=== PATIENT | male | born 1980 | race African-American/Black ===

== ENCOUNTER 2018-04-06 16:34 | Emergency (ER) | payer OTHER ==
[~2018-04-06] VITALS: Ht 175.3 cm; Wt 88.5 kg
[~2018-04-06 16:34] MED LIST: ACET325T9 PO
[2018-04-06] MEDS ORDERED: IV NORMAL SALINE 1000ML BAG 1,000 ML IV ONE (18:30)
[2018-04-06] MEDS ORDERED: KETOROLAC 30 MG/ML VIAL. IV ONE (18:30)
[2018-04-06] MEDS ORDERED: KETOROLAC 60 MG/2 ML VIAL. IM ONE (18:30)
[2018-04-06] MEDS ORDERED: HYDROcodone/APAP 5/325MG 1 TAB TABLET PO ONE (18:30)
[2018-04-06 18:51] LABS: BILIRUBIN,URINE NEGATIVE (NEG); COLOR,URINE YELLOW; NITRITE,URINE NEGATIVE (NEG); PROTEIN,URINE NEGATIVE (NEG-TRACE); UROBILINOGEN,URINE 0.2 mg/dL (0.2 mg/dL)
[2018-04-06 18:56] LABS: CLARITY,URINE CLEAR
[2018-04-06 18:59] LABS: BACTERIA,URINE FEW /HPF (0-FEW); RBC,URINE 0 /HPF (0-2); SQUAMOUS EPITHELIAL CELL,UR MOD /LPF
--- NOTE | 2018-04-06 19:13 | PHYS DOC ---
Past Medical History Past Medical History: No Pertinent History (CHRISTIE ELLIS APRN) Past Surgical History: No Surgical History (CHRISTIE ELLIS APRN) Alcohol Use: None Drug Use: None (CHRISTIE ELLIS APRN) Adult General Chief Complaint Chief Complaint: BACK PAIN OR INJURY HPI HPI Patient is a 38 year old male who presents with lower abdominal pain, dysuria, fever, back pain 1 day. Patient rates his pain an 8 out of 10. Denies nausea or vomiting or blood in his urine. Temp is 100.5, 104 heart rate. (CHRISTIE ELLIS CEO AND FOUNDER) Review of Systems Review of Systems Constitutional: fever or chills [] Eyes: Denies change in visual acuity, redness, or eye pain [] HENT: Denies nasal congestion or sore throat [] Respiratory: Denies cough or shortness of breath [] Cardiovascular: No additional information not addressed in HPI [] GI: abdominal pain, denies nausea, vomiting, bloody stools or diarrhea [] : dysuria or denies hematuria [] Musculoskeletal: Bilateral back pain or denies joint pain [] Integument: Denies rash or skin lesions [] Neurologic: Denies headache, focal weakness or sensory changes [] All other systems were reviewed and found to be within normal limits, except as documented in this note. (CHRISTIE ELLIS APRN) Current Medications Current Medications Current Medications Medications (Trade) Dose Ordered Sig/Victoriano Start Time Stop Time Status Last Admin Dose Admin Acetaminophen/ Hydrocodone Bitart (Lortab 5/325) 1 tab 1X ONCE 04/06/18 18:30 04/06/18 18:31 DC 04/06/18 20:15 1 TAB Ketorolac Tromethamine (Toradol 30mg Vial) 30 mg 1X ONCE 04/06/18 18:30 04/06/18 18:34 DC 04/06/18 19:26 30 MG Ketorolac Tromethamine (Toradol Im) 60 mg 1X ONCE 04/06/18 18:30 04/06/18 18:31 DC Sodium Chloride 1,000 ml @ 1,000 mls/hr 1X ONCE 04/06/18 18:30 04/06/18 19:29 DC 04/06/18 19:25 1,000 MLS/HR (ALMAS LYNN DO) Allergies Allergies Allergies Coded Allergies Type Severity Reaction Last Updated Verified No Known Drug Allergies 03/23/13 No (ALMAS LYNN DO) Physical Exam Physical Exam Constitutional: Well developed, well nourished, no acute distress, non-toxic appearance. [] HENT: Normocephalic, atraumatic, bilateral external ears normal, oropharynx moist, no oral exudates, nose normal. [] Eyes: PERRLA, EOMI, conjunctiva normal, no discharge. [] Neck: Normal range of motion, no tenderness, supple, no stridor. [] Cardiovascular:Heart rate regular rhythm, no murmur [] Lungs & Thorax: Bilateral breath sounds clear to auscultation [] Abdomen: Bowel sounds normal, soft, left lower quadrant, right lower quadrant, mid lower abdominal tenderness, no masses, no pulsatile masses. [] Skin: Warm, dry, no erythema, no rash. [] Back: No tenderness, CVA tenderness. [] Extremities: No tenderness, no cyanosis, no clubbing, ROM intact, no edema. [] Neurologic: Alert and oriented X 3, normal motor function, normal sensory function, no focal deficits noted. [] Psychologic: Affect normal, judgement normal, mood normal. [] (CHRISTIE ELLIS APRN) Current Patient Data Vital Signs Vital Signs Date Time Temp Pulse Resp B/P (MAP) Pulse Ox O2 Delivery O2 Flow Rate FiO2 04/06/18 20:38 81 112/67 (82) 95 04/06/18 20:15 18 Room Air 04/06/18 18:39 100.5 100.5 (ALMAS LYNN DO) Lab Values Laboratory Tests Test 04/06/18 18:34 04/06/18 19:18 Urine Collection Type Unknown Urine Color Yellow Urine Clarity Clear Urine pH 6.0 Urine Specific [place] 1.010 Urine Protein Negative mg/dL (NEG-TRACE) Urine Glucose (UA) Negative mg/dL (NEG) Urine Ketones (Stick) Negative mg/dL (NEG) Urine Blood Negative (NEG) Urine Nitrite Negative (NEG) Urine Bilirubin Negative (NEG) Urine Urobilinogen Dipstick 0.2 mg/dL (0.2 mg/dL) Urine Leukocyte Esterase Trace (NEG) Urine RBC 0 /HPF (0-2) Urine WBC 1-4 /HPF (0-4) Urine Squamous Epithelial Cells Mod /LPF Urine Bacteria Few /HPF (0-FEW) White Blood Count 8.0 x10^3/uL (4.0-11.0) Red Blood Count 5.93 x10^6/uL (4.30-5.70) H Hemoglobin 17.3 g/dL (13.0-17.5) Hematocrit 51.0 % (39.0-53.0) Mean Corpuscular Volume 86 fL (79-100) Mean Corpuscular Hemoglobin 29 pg (25-35) Mean Corpuscular Hemoglobin Concent 34 g/dL (31-37) Red Cell Distribution Width 12.9 % (11.5-14.5) Platelet Count 194 x10^3/uL (140-400) Neutrophils (%) (Auto) 82 % (31-73) H Lymphocytes (%) (Auto) 10 % (24-48) L Monocytes (%) (Auto) 7 % (0-9) Eosinophils (%) (Auto) 1 % (0-3) Basophils (%) (Auto) 0 % (0-3) Neutrophils # (Auto) 6.6 x10^3uL (1.8-7.7) Lymphocytes # (Auto) 0.8 x10^3/uL (1.0-4.8) L Monocytes # (Auto) 0.5 x10^3/uL (0.0-1.1) Eosinophils # (Auto) 0.1 x10^3/uL (0.0-0.7) Basophils # (Auto) 0.0 x10^3/uL (0.0-0.2) Sodium Level 137 mmol/L (136-145) Potassium Level 4.3 mmol/L (3.5-5.1) Chloride Level 99 mmol/L (98-107) Carbon Dioxide Level 29 mmol/L (21-32) Anion Gap 9 (6-14) Blood Urea Nitrogen 15 mg/dL (8-26) Creatinine 0.9 mg/dL (0.7-1.3) Estimated GFR (Cockcroft-Gault) 115.5 BUN/Creatinine Ratio 17 (6-20) Glucose Level 89 mg/dL (70-99) Calcium Level 9.6 mg/dL (8.5-10.1) Total Bilirubin 0.9 mg/dL (0.2-1.0) Aspartate Amino Transferase (AST) 35 U/L (15-37) Alanine Aminotransferase (ALT) 45 U/L (16-63) Alkaline Phosphatase 87 U/L (46-116) Total Protein 8.2 g/dL (6.4-8.2) Albumin 4.5 g/dL (3.4-5.0) Albumin/Globulin Ratio 1.2 (1.0-1.7) Laboratory Tests 04/06/18 19:18 Laboratory Tests 04/06/18 19:18 (ALMAS LYNN DO) EKG EKG [] (CHRISTIE ELLIS APRN) Radiology/Procedures Radiology/Procedures CT abdomen pelvis (CHRISTIE ELLIS APRN) Impressions: [facility] [address] [place] [address] IMAGING REPORT Signed PATIENT: CHAMP SUN ACCOUNT: [id number] : 1980 LOCATION: ER AGE: 38 SEX: M EXAM STATUS: REG ER ORD. PHYSICIAN: CHRISTIE ELLIS APRN REASON: FLANK PAIN, ABDOMINAL PAIN, URINARY SX PROCEDURE: CT ABDOMEN PELVIS WO CONTRAST CT study of the abdomen and pelvis without contrast Clinical indications: Bilateral flank pain. Abdominal pain. Urinary symptoms. TECHNIQUE: Noncontrast helical CT scanning of the abdomen and pelvis was performed. Without contrast, the sensitivity to detect organ pathology and GI tract pathology is decreased. PQRS compliance Statement One or more of the following individualized dose reduction techniques were utilized for this study: 1. Automated exposure control 2. Adjustment of the mA and/or kV according to patient size 3. Use of iterative reconstruction technique COMPARISON: None available FINDINGS: The liver and spleen and pancreas are normal on this noncontrast study. Gallbladder is normal and no extrahepatic biliary ductal dilatation is seen. No adrenal mass is evident. No hydronephrosis or hydroureter is evident. No urinary tract stone is evident. No renal mass seen on this noncontrast study. No focal aneurysmal dilatation of the abdominal aorta is seen. No enlarged abdominal or pelvic lymphadenopathy is evident. Urinary bladder is not distended. The appendix is normal. The terminal ileum is unremarkable. There is mild fecal retention throughout the colon. No obstructive bowel pattern is seen. No free air or free fluid or mesenteric edema is seen. No lytic process is seen. There is a cyst or hemangioma of the T12 vertebral body. Well-defined sclerotic border is seen. There is a small noncalcified lung nodule within the inferior segment of lingula measuring less than 4 mm. There is a small infiltrate present within the medial segment of the right middle lobe. IMPRESSION: Colonic diverticulosis without diverticulitis. No acute abnormality of the abdomen or pelvis is seen otherwise. Small infiltrate is seen within the medial segment of the right middle lobe. There is a noncalcified nodule measuring less than 4 mm in size within the inferior segment lingula. If the patient is at high risk for malignancy, then a follow-up chest CT in 12 months is recommended as per Fleischner guidelines. If not at high risk for malignancy, then no further follow-up is needed. Electronically signed by: Wilda Lemos MD (04/06/2018 8:10 PM) [facility] DICTATED and SIGNED BY: WILDA LEMOS MD DATE: 04/06/182000 (CHRISTIE ELLIS APRN) Course & Med Decision Making Course & Med Decision Making Patient is a 38 year old male who presents with lower abdominal pain, dysuria, fever, back pain 1 day. Patient rates his pain an 8 out of 10. Denies nausea or vomiting or blood in his urine. Temp is 100.5, 104 heart rate. Alert and oriented. Skin pink warm and dry. Mucous membranes are moist. CVA tenderness. Left lower, right lower, mid lower abdomen tenderness with palpation. Abdomen is soft. Patient denies nausea, vomiting, diarrhea. Patient states he has been running a fever. Patient denies taking any medications. Patient has no extremity edema. Heart rate and tachycardia but no murmur. CT shows no acute findings.Colonic diverticulosis without diverticulitis. No acute abnormality of the abdomen or pelvis is seen otherwise. Small infiltrate is seen within the medial segment of the right middle lobe. There is a noncalcified nodule measuring less than 4 mm in size within the inferior segment lingula. If the patient is at high risk for malignancy, then a follow- up chest CT in 12 months is recommended as per Fleischner guidelines. If not at high risk for malignancy, then no further follow-up is needed. Urine shows slight infection and will be treated because of his symptoms, his fever, and small infiltrate seen. (CHRISTIE ELLIS APRN) Dragon Disclaimer Dragon Disclaimer This electronic medical record was generated, in whole or in part, using a voice recognition dictation system. (CHRISTIE ELLIS APRN) Departure Departure Impression: Primary Impression: Urinary symptom or sign Additional Impression: Fever Disposition: HOME, SELF-CARE Condition: STABLE Referrals: NON,STAFF (PCP) Patient Instructions: Dysuria, Fever Additional Instructions: FOLLOW UP WITH YOUR PRIMARY CARE PROVIDER ON SUNDAY. TAKE MEDICATIONS PRESCRIBED. Scripts Cephalexin (KEFLEX) 500 Mg Capsule 1 CAP PO BID, #14 CAP Prov: CHRISTIE ELLIS APRN 04/06/18 Ibuprofen (IBUPROFEN) 600 Mg Tablet 600 MG PO PRN Q6HRS PRN for INFLAMMATION, #20 TAB Prov: CHRISTIE ELLIS APRN 04/06/18 Attending Signature Attending Signature I have reviewed the PA/[employer] CREWMEMBER's note and plan of care. I was available for consultation as needed during the patient's visit in the emergency department. I agree with the clinical impression, plan, and disposition. (ALMAS LYNN DO) Problem Qualifiers Additional Impression: Fever Fever type: unspecified Qualified Codes: R50.9 - Fever, unspecified CHRISTIE ELLIS APRN Apr 06, 2018 19:13 ALMAS LYNN DO Apr 07, 2018 00:59
[2018-04-06 19:49] LABS: BASO % 0 % (0-3); EOS # 0.1 x10^3/uL (0.0-0.7); EOS % 1 % (0-3); HEMOGLOBIN 17.3 g/dL (13.0-17.5); LYMPH # 0.8 x10^3/uL (1.0-4.8); LYMPH % 10 % (24-48); MEAN CORPUSCULAR HEMOGLOBIN 29 pg (25-35); MEAN CORPUSCULAR HGB CONC 34 g/dL (31-37); MEAN CORPUSCULAR VOLUME 86 fL (79-100); MONO # 0.5 x10^3/uL (0.0-1.1); MONO % 7 % (0-9); NEUT # 6.6 x10^3uL (1.8-7.7); NEUT % 82 % (31-73); PLATELET COUNT 194 x10^3/uL (140-400); RED BLOOD COUNT 5.93 x10^6/uL (4.30-5.70); RED CELL DISTRIBUTION WIDTH 12.9 % (11.5-14.5)
[2018-04-06 20:01] LABS: CALCIUM 9.6 mg/dL (8.5-10.1); CREATININE 0.9 mg/dL (0.7-1.3); GFR 115.5; POTASSIUM 4.3 mmol/L (3.5-5.1)
[2018-04-06 20:07] LABS: ALBUMIN 4.5 g/dL (3.4-5.0); ALBUMIN/GLOBULIN RATIO 1.2 (1.0-1.7); TOTAL BILIRUBIN 0.9 mg/dL (0.2-1.0); TOTAL PROTEIN 8.2 g/dL (6.4-8.2)
--- NOTE | 2018-04-06 20:15 | RAD ---
CT study of the abdomen and pelvis without contrast Clinical indications: Bilateral flank pain. Abdominal pain. Urinary symptoms. TECHNIQUE: Noncontrast helical CT scanning of the abdomen and pelvis was performed. Without contrast, the sensitivity to detect organ pathology and GI tract pathology is decreased. PQRS compliance Statement One or more of the following individualized dose reduction techniques were utilized for this study: 1. Automated exposure control 2. Adjustment of the mA and/or kV according to patient size 3. Use of iterative reconstruction technique COMPARISON: None available FINDINGS: The liver and spleen and pancreas are normal on this noncontrast study. Gallbladder is normal and no extrahepatic biliary ductal dilatation is seen. No adrenal mass is evident. No hydronephrosis or hydroureter is evident. No urinary tract stone is evident. No renal mass seen on this noncontrast study. No focal aneurysmal dilatation of the abdominal aorta is seen. No enlarged abdominal or pelvic lymphadenopathy is evident. Urinary bladder is not distended. The appendix is normal. The terminal ileum is unremarkable. There is mild fecal retention throughout the colon. No obstructive bowel pattern is seen. No free air or free fluid or mesenteric edema is seen. No lytic process is seen. There is a cyst or hemangioma of the T12 vertebral body. Well-defined sclerotic border is seen. There is a small noncalcified lung nodule within the inferior segment of lingula measuring less than 4 mm. There is a small infiltrate present within the medial segment of the right middle lobe. IMPRESSION: Colonic diverticulosis without diverticulitis. No acute abnormality of the abdomen or pelvis is seen otherwise. Small infiltrate is seen within the medial segment of the right middle lobe. There is a noncalcified nodule measuring less than 4 mm in size within the inferior segment lingula. If the patient is at high risk for malignancy, then a follow-up chest CT in 12 months is recommended as per Fleischner guidelines. If not at high risk for malignancy, then no further follow-up is needed. Electronically signed by: Shon Lemos MD (04/06/2018 8:10 PM) [facility]
[2018-04-06] MEDS ORDERED: IBUP-1007 PO (20:28)
[2018-04-06] MEDS ORDERED: CEPH-264 PO (20:28)
[2018-04-06 20:38] VITALS: BP 112/67
== END 2018-04-06 21:08 | disposition home or self-care (01) ==
LOC: ER 16:34
DX: R10.32 Left lower quadrant pain (principal); R10.31 Right lower quadrant pain; R30.0 Dysuria; R50.9 Fever, unspecified; M54.9 Dorsalgia, unspecified
CPT/HCPCS: 36415; 74176; 80053; 81001; 85025; 87086; 96374; 99284; J1885; J7030

== ENCOUNTER 2019-03-02 11:58 | Emergency (ER) | payer OTHER ==
[~2019-03-02] VITALS: Ht 175.3 cm; Wt 88.5 kg
[~2019-03-02 11:58] MED LIST changes: +CEPH-264 PO; +IBUP-1007 PO
[2019-03-02 13:03] LABS: BILIRUBIN,URINE NEGATIVE (NEG); CLARITY,URINE CLEAR; COLOR,URINE YELLOW; NITRITE,URINE NEGATIVE (NEG); PH,URINE 5.5; PROTEIN,URINE NEGATIVE (NEG-TRACE); UROBILINOGEN,URINE 0.2 mg/dL (0.2 mg/dL)
[2019-03-02] MEDS ORDERED: KETOROLAC 60 MG/2 ML VIAL. IM ONE (13:15)
[2019-03-02 13:23] LABS: BACTERIA,URINE 0 /HPF (0-FEW); RBC,URINE OCC /HPF (0-2); SQUAMOUS EPITHELIAL CELL,UR MOD /LPF
[2019-03-02] MEDS ORDERED: CYCL10TA2 PO (13:55)
[2019-03-02] MEDS ORDERED: NAPR-683 PO (13:55)
[2019-03-02] MEDS ORDERED: HYDR-3164 PO (13:55)
--- NOTE | 2019-03-02 13:55 | PHYS DOC ---
Past Medical History Past Medical History: No Pertinent History Past Surgical History: Other Additional Past Surgical Histo: 'URINE SURGERY'? Alcohol Use: None Drug Use: None Adult General Chief Complaint Chief Complaint: back pain HPI HPI Patient is a 38 year old male patient without history of medical problem who presents with faint of back pain. Patient complaining of low back pain for the last 2 or 3 days with radiation to upper back as a constant pain that getting force with movement without focal neuro deficit, fever and chills, nausea vomiting, abdominal pain, injury. Patient complaining of dysuria. Review of Systems Review of Systems Constitutional: Denies fever or chills [] Eyes: Denies change in visual acuity, redness, or eye pain [] HENT: Denies nasal congestion or sore throat [] Respiratory: Denies cough or shortness of breath [] Cardiovascular: No additional information not addressed in HPI [] GI: Denies abdominal pain, nausea, vomiting, bloody stools or diarrhea [] : Denies dysuria or hematuria [] Musculoskeletal: Reports back pain, denies joint pain [] Integument: Denies rash or skin lesions [] Neurologic: Denies headache, focal weakness or sensory changes [] Endocrine: Denies polyuria or polydipsia [] All other systems were reviewed and found to be within normal limits, except as documented in this note. Current Medications Current Medications Current Medications Medications (Trade) Dose Ordered Sig/Victoriano Start Time Stop Time Status Last Admin Dose Admin Ketorolac Tromethamine (Toradol Im) 60 mg 1X ONCE 03/02/19 13:15 03/02/19 13:16 DC 03/02/19 13:20 60 MG Allergies Allergies Allergies Coded Allergies Type Severity Reaction Last Updated Verified No Known Drug Allergies 03/23/13 No Physical Exam Physical Exam Constitutional: Well developed, well nourished, mild distress, non-toxic appearance. [] HENT: Normocephalic, atraumatic. Eyes: PERRLA, EOMI, conjunctiva normal, no discharge. [] Neck: Normal range of motion, no tenderness, supple, no stridor. [] Cardiovascular:Heart rate regular rhythm, no murmur [] Lungs & Thorax: Bilateral breath sounds clear to auscultation [] Abdomen: Bowel sounds normal, soft, no tenderness, no masses, no pulsatile masses. [] Skin: Warm, dry, no erythema, no rash. [] Back: No midline tenderness, bilateral lumbar paraspinal muscular spasm, no CVA tenderness. [] Extremities: No tenderness, no cyanosis, no clubbing, ROM intact, no edema. [] Neurologic: Alert and oriented X 3, no focal deficits noted. [] Psychologic: Affect normal, judgement normal, mood normal. [] Current Patient Data Vital Signs Vital Signs Date Time Temp Pulse Resp B/P (MAP) Pulse Ox O2 Delivery O2 Flow Rate FiO2 03/02/19 14:00 86 12 112/70 (84) 100 03/02/19 12:35 97.9 Room Air 97.9 Lab Values Laboratory Tests Test 03/02/19 12:39 Urine Collection Type Unknown Urine Color Yellow Urine Clarity Clear Urine pH 5.5 Urine Specific [place] 1.020 Urine Protein Negative mg/dL (NEG-TRACE) Urine Glucose (UA) Negative mg/dL (NEG) Urine Ketones (Stick) Negative mg/dL (NEG) Urine Blood Negative (NEG) Urine Nitrite Negative (NEG) Urine Bilirubin Negative (NEG) Urine Urobilinogen Dipstick 0.2 mg/dL (0.2 mg/dL) Urine Leukocyte Esterase Negative (NEG) Urine RBC Occ /HPF (0-2) Urine WBC 1-4 /HPF (0-4) Urine Squamous Epithelial Cells Mod /LPF Urine Transitional Epithelial Cells Few /LPF Urine Bacteria 0 /HPF (0-FEW) Urine Mucus Mod /LPF EKG EKG [] Radiology/Procedures Radiology/Procedures [] Course & Med Decision Making Course & Med Decision Making Pertinent Labs reviewed. (See chart for details) Evaluation of patient in ER showed 38-year-old male patient with complaining of bilateral paraspinal lumbar muscle pain with radiation to her back without radiculopathy symptom. UA was unremarkable. Patient felt better with Toradol given in ER. Plan discharge patient home to diagnose of lumbosacral myofascial strain. Dragon Disclaimer Dragon Disclaimer This electronic medical record was generated, in whole or in part, using a voice recognition dictation system. Departure Departure Impression: Primary Impression: Acute lumbosacral myofascial strain Additional Impression: Dysuria Disposition: HOME, SELF-CARE (@1345) Condition: IMPROVED Referrals: NO PCP (PCP) Patient Instructions: Dysuria, Lumbosacral Strain Additional Instructions: Drink plenty of liquids Follow-up with your primary care physician in 3-5 days Return to ER if not getting better Apply ice on your back Thank you for visiting [facility]. We appreciate you trusting us with your care. If any additional problems come up don't hesitate to return to visit us. Please follow up with your primary care provider so they can plan additional care if needed and know about the problem that you had. If symptoms worsen come back to the Emergency Department. Any concerning symptoms that start such as chest pain, shortness of air, weakness or numbness on one side of the body, running high fevers or any other concerning symptoms return to the ER. Scripts Hydrocodone/Apap 5-325 (NORCO 5-325 TABLET) 1 Each Tablet 1 TAB PO PRN Q6HRS PRN for PAIN, #14 TAB 0 Refills Prov: OTTO SORTO MD 03/02/19 Naproxen (NAPROSYN) 500 Mg Tablet 1 TAB PO BID for pain, #20 TAB Prov: OTTO SORTO MD 03/02/19 Cyclobenzaprine Hcl (CYCLOBENZAPRINE HCL) 10 Mg Tablet 1 TAB PO TID, #21 TAB Prov: OTTO SORTO MD 03/02/19 Problem Qualifiers Primary Impression: Acute lumbosacral myofascial strain Encounter type: initial encounter Qualified Codes: S39.012A - Strain of muscle, fascia and tendon of lower back, initial encounter OTTO SORTO MD Mar 02, 2019 13:55
[2019-03-02 14:00] VITALS: BP 112/70
== END 2019-03-02 14:00 | disposition home or self-care (01) ==
LOC: ER 11:58
DX: S39.012A Strain of muscle, fascia and tendon of lower back, initial encounter (principal); R30.0 Dysuria; X58.XXXA Exposure to other specified factors, initial encounter; Y93.89 Activity, other specified; Y92.89 Other specified places as the place of occurrence of the external cause; Y99.8 Other external cause status
CPT/HCPCS: 81001; 96372; 99283; J1885